=== PATIENT | female | born 1950 | race Caucasian/White ===

== ENCOUNTER 2023-06-18 18:11 | Emergency (ER) | payer BC ==
[~2023-06-18] VITALS: Ht 162.6 cm; Wt 71.2 kg
[2023-06-18 19:07] LABS: HEMOGLOBIN 11.3 g/dl (12.0-16.0)
[2023-06-18 19:08] LABS: BASOPHILS % (AUTO) 0.3 % (0-1); EOSINOPHILS # (AUTO) 0.3 X10'3 (0-0.9); EOSINOPHILS % (AUTO) 2.8 % (0-6); HEMATOCRIT 33.7 % (35.0-45.0); LYMPHOCYTES # (AUTO) 2.9 X10'3 (1.1-4.8); LYMPHOCYTES % (AUTO) 28.4 % (21-51); MEAN CORPUSCULAR HEMOGLOBIN 31.3 PG (27.0-31.0); MEAN CORPUSCULAR HGB CONC 33.5 g/dL (33.0-36.5); MEAN CORPUSCULAR VOLUME 93.5 FL (78-98); MEAN PLATELET VOLUME 7.9 FL (7.4-10.4); MONOCYTES # (AUTO) 0.8 X10'3 (0-0.9); MONOCYTES % (AUTO) 7.4 % (2-12); NEUTROPHILS # (AUTO) 6.2 X10'3 (1.8-7.7); NEUTROPHILS % (AUTO) 61.1 % (42-75); PLATELET COUNT 316 X10'3 (140-440); RED BLOOD COUNT 3.61 X10'6 (4.20-5.60); RED CELL DISTRIBUTION WIDTH 13.1 % (11.5-14.5); WHITE BLOOD COUNT 10.2 X10'3 (4.5-11.0)
[2023-06-18 19:19] LABS: APTT 26 SECONDS (22-32); D-DIMER 0.41 MG/L FEU (0-0.50); PROTHROMBIN TIME 10.8 SECONDS (9.0-12.0)
[2023-06-18 19:20] LABS: ALANINE AMINOTRANSFERASE 19 U/L (12-78); ALBUMIN 3.8 G/DL (3.4-5.0); ALBUMIN/GLOBULIN RATIO 0.9 (1.1-1.5); ALKALINE PHOSPHATASE 69 IU/L (46-116); ANION GAP 7 (8-16); ASPARTATE AMINO TRANSFERASE 22 U/L (10-37); BILIRUBIN,TOTAL 0.3 MG/DL (0.1-1.0); BLOOD UREA NITROGEN 17 MG/DL (7-18); BUN/CREATININE RATIO 18.5 (10.0-20.0); CALCIUM 9.6 MG/DL (8.5-10.1); CHLORIDE 103 MMOL/L (99-107); CREATININE 0.92 MG/DL (0.40-0.90); GLUCOSE 159 MG/DL (70-104); POTASSIUM 3.5 MMOL/L (3.5-5.1); SODIUM 137 MMOL/L (135-145); TOTAL PROTEIN 8.1 G/DL (6.4-8.2); eCRCL 47 ML/MIN; eGFR 60 ML/MIN
--- NOTE | 2023-06-18 19:26 | NUR ---
non destructive testing technician done at bedside.
[2023-06-18 19:28] LABS: MAGNESIUM 2.1 MG/DL (1.5-2.4); PRO BRAIN NATRIURETIC PEPTIDE 668 PG/ML (0-125)
[2023-06-18] MEDS ORDERED: DOXYCYCLINE 100MG CAPSULE PO STA (19:28)
[2023-06-18] MEDS ORDERED: aspirin 325mg tablet PO ONE (19:30)
[2023-06-18] MEDS ORDERED: DOXY-1 PO (19:31)
[2023-06-18 19:42] VITALS: BP 132/70; PULSE 76; RESP 16; TEMP 98.7; O2SAT 95
== END 2023-06-18 19:53 | disposition home or self-care (01) ==
LOC: ER 18:12
DX: L03.115 Cellulitis of right lower limb (principal); I87.2 Venous insufficiency (chronic) (peripheral); I50.9 Heart failure, unspecified; I38 Endocarditis, valve unspecified; Z79.2 Long term (current) use of antibiotics
CPT/HCPCS: 80053; 83735; 83880; 84484; 85025; 85379; 85610; 85730; 93971; 99284

== ENCOUNTER 2023-06-27 09:23 | Emergency (ER) | payer BC ==
[~2023-06-27] VITALS: Ht 162.6 cm; Wt 76.8 kg
[~2023-06-27 09:23] MED LIST: DOXY-1 PO
[2023-06-27 10:07] VITALS: BP 108/60; PULSE 66; TEMP 97.8; O2SAT 98
[2023-06-27 10:53] VITALS: RESP 16
[2023-06-27] MEDS ORDERED: CEPH-585 PO (11:38)
[2023-06-27] MEDS ORDERED: SULF1TAB49 PO (11:38)
[2023-06-27 11:52] LABS: BASOPHILS % (AUTO) 0.4 % (0-1); EOSINOPHILS # (AUTO) 0.2 X10'3 (0-0.9); EOSINOPHILS % (AUTO) 2.5 % (0-6); HEMATOCRIT 33.4 % (35.0-45.0); HEMOGLOBIN 10.8 g/dl (12.0-16.0); LYMPHOCYTES % (AUTO) 31.4 % (21-51); MEAN CORPUSCULAR HEMOGLOBIN 30.4 PG (27.0-31.0); MEAN CORPUSCULAR HGB CONC 32.4 g/dL (33.0-36.5); MEAN CORPUSCULAR VOLUME 93.8 FL (78-98); MEAN PLATELET VOLUME 8.5 FL (7.4-10.4); MONOCYTES # (AUTO) 0.5 X10'3 (0-0.9); MONOCYTES % (AUTO) 7.3 % (2-12); NEUTROPHILS # (AUTO) 3.7 X10'3 (1.8-7.7); NEUTROPHILS % (AUTO) 58.4 % (42-75); PLATELET COUNT 275 X10'3 (140-440); RED BLOOD COUNT 3.56 X10'6 (4.20-5.60); RED CELL DISTRIBUTION WIDTH 13.1 % (11.5-14.5); WHITE BLOOD COUNT 6.4 X10'3 (4.5-11.0)
[2023-06-27 12:07] LABS: ALANINE AMINOTRANSFERASE 20 U/L (12-78); ALBUMIN 3.3 G/DL (3.4-5.0); ALBUMIN/GLOBULIN RATIO 0.8 (1.1-1.5); ALKALINE PHOSPHATASE 61 IU/L (46-116); ANION GAP 5 (8-16); ASPARTATE AMINO TRANSFERASE 13 U/L (10-37); BILIRUBIN,TOTAL 0.4 MG/DL (0.1-1.0); BLOOD UREA NITROGEN 21 MG/DL (7-18); BUN/CREATININE RATIO 26.3 (10.0-20.0); CALCIUM 8.7 MG/DL (8.5-10.1); CHLORIDE 107 MMOL/L (99-107); GLUCOSE 94 MG/DL (70-104); POTASSIUM 3.7 MMOL/L (3.5-5.1); SODIUM 142 MMOL/L (135-145); TOTAL CARBON DIOXIDE 30.5 MMOL/L (24-32); TOTAL PROTEIN 7.3 G/DL (6.4-8.2); eCRCL 54 ML/MIN; eGFR 70 ML/MIN
== END 2023-06-27 11:51 | disposition home or self-care (01) ==
LOC: ER 09:23
DX: L03.115 Cellulitis of right lower limb (principal); I50.9 Heart failure, unspecified; Z79.899 Other long term (current) drug therapy
CPT/HCPCS: 36415; 80053; 85025; 99283

== ENCOUNTER 2023-07-17 10:40 | Emergency (ER) | payer BC ==
[~2023-07-17] VITALS: Ht 162.6 cm; Wt 80.5 kg
[~2023-07-17 10:40] MED LIST changes: +CEPH-585 PO; -DOXY-1 PO
[2023-07-17 10:41] VITALS: BP 126/60; PULSE 78; RESP 16; TEMP 98.1; O2SAT 97
[2023-07-17] MEDS ORDERED: TRIA15CR61 TOP (11:37)
[2023-07-17] MEDS ORDERED: CEPH-585 PO (11:37)
[2023-07-17] MEDS ORDERED: SULF1TAB49 PO (11:37)
--- NOTE | 2023-07-17 14:32 | NUR ---
I AGREE WITH THE ASSESSMENT PER Geoff QUINONES LVN
== END 2023-07-17 11:51 | disposition home or self-care (01) ==
LOC: ER 10:40
DX: R22.41 Localized swelling, mass and lump, right lower limb (principal); I50.9 Heart failure, unspecified; Z79.2 Long term (current) use of antibiotics
CPT/HCPCS: 99283